=== PATIENT | male | born 1975 | race Caucasian/White ===

== ENCOUNTER → 2016-08-06 | Outpatient (CLI) | payer BC ==
[~2016-08-06] MED LIST: BP MED; CEPH500C PO; INNOPRAN; LRT5 PO; MULTTAB
--- NOTE | 2016-08-06 11:21 | DIAGNOSTIC IMAGING REPORT ---
CHEST 2 VIEWS ROUTINE CLINICAL HISTORY: Hypoxemia. Cough. COMPARISON STUDY: Chest radiograph July 31, 2016. FINDINGS: Lung volumes are at the lower limits of normal. There is no consolidation. There is no evidence of pulmonary edema. Cardiac size is normal. Mediastinal contours are normal. IMPRESSION: No acute cardiopulmonary findings. Electronically signed by: Jeremy Cao M.D. 08/06/2016 11:19 AM
== END | disposition home or self-care (01) ==
LOC: C.RAD1850 09:41
PROVIDERS: ATTEND Nurse Practitioner
DX: R09.02 Hypoxemia (principal); R05 Cough

== ENCOUNTER → 2018-03-18 | Outpatient (CLI) | payer OTHER ==
[~2018-03-18] MED LIST changes: +OPTIRAY 320 IV PRN
--- NOTE | 2018-03-18 09:25 | DIAGNOSTIC IMAGING REPORT ---
CT (CHEST) THORAX WITH CLINICAL HISTORY: 43 years-old Male presenting with history of melanoma, follow-up. TECHNIQUE: Multidetector CT imaging of the chest was performed after the administration of intravenous contrast. IV contrast: 118 mL of Optiray 320. A dose lowering technique was used consistent with the principles of ALARA (as low as reasonably achievable). COMPARISON: Chest x-ray from 08/06/2016. CT DOSE (mGy.cm): The estimated cumulative dose is 2917.44 mGy.cm. FINDINGS: Senior Marketing Data Analyst topogram: Unremarkable. On soft tissue windows, normal thyroid and thoracic inlet. Bilateral gynecomastia. Postsurgical changes of the left axilla possibly from lymphadenectomy. No axillary, supraclavicular, hilar, or mediastinal lymphadenopathy. Normal aorta. Normal heart size. No pericardial or pleural effusion. Hepatic steatosis. On lung windows, no focal infiltrate or nodule. Airways patent. No pneumothorax. On bone windows, normal osseous structures. IMPRESSION: 1. No evidence of intrathoracic metastatic disease. 2. Postsurgical changes of the left axilla. 3. Hepatic steatosis. Electronically signed by: Rolan Castillo M.D. 03/18/2018 9:24 AM Dictated Date/Time: 03/18/2018 9:08 AM
--- NOTE | 2018-03-18 09:45 | DIAGNOSTIC IMAGING REPORT ---
CT OF THE ABDOMEN AND PELVIS WITH CONTRAST CLINICAL HISTORY: Melanoma. COMPARISON STUDY: None. TECHNIQUE: Following IV administration of 118 mL of Optiray-320, axial images of the abdomen and pelvis were obtained from the lung bases to the proximal femurs. Images were reviewed in the axial, sagittal, and coronal planes. IV contrast was administered without complication. A dose lowering technique was utilized adhering to the principles of ALARA. Oral contrast was administered. FINDINGS: Please note that the chest CT will be reported separately. Fatty infiltration of the liver is noted with areas of sparing within the gallbladder fossa. There are no suspicious hepatic lesions. The spleen, adrenal glands, kidneys and pancreas are normal with the exception of a 9 mm cyst arising from the lower pole the left kidney. There is a probable smaller cyst within the midpole of the left kidney. No enlarged abdominal or pelvic lymph nodes are identified. There is no ascites. No suspicious osseous lesion is noted. Caliber and wall thickness of small and large bowel are normal. IMPRESSION: No evidence of metastatic disease within the abdomen or pelvis. Electronically signed by: Jeremy Cao M.D. 03/18/2018 9:44 AM Dictated Date/Time: 03/18/2018 9:07 AM
== END | disposition home or self-care (01) ==
LOC: C.CTS 08:35
PROVIDERS: ATTEND Internal Medicine Hematology & Oncology
DX: C43.62 Malignant melanoma of left upper limb, including shoulder (principal)